=== PATIENT | male | born 1985 | race Caucasian/White ===

== ENCOUNTER 2019-03-01 15:20 | Emergency (ER) | payer MEDICAID, SELFPAY ==
[2019-03-01 15:22] VITALS: BP 135/83; PULSE 75; RESP 18; TEMP 36.1; O2SAT 99; BMI 27.9
--- NOTE | 2019-03-01 15:35 | RAD_ITS ---
STUDY: X-RAY - UNILATERAL RIBS ( LEFT ) WITH CHEST REASON FOR EXAM: Male, 33 years old. Left mid rib pain. TECHNIQUE - RIBS: 4 view(s) of the ribs. TECHNIQUE - CHEST: Single PA view of the chest. COMPARISON: None. FINDINGS - RIBS: Normal visualized ribs without a demonstrated fracture. FINDINGS - CHEST: Increased markings at the lung bases suggestive of bibasilar atelectasis. There is no demonstrated pleural abnormality. Normal size heart. Normal mediastinum and jared. Normal visualized pulmonary arteries. Normal visualized aortic arch and descending thoracic aorta. Normal visualized thoracic spine. Normal visualized ribs, clavicles, and shoulders. There is no demonstrated abnormality of the visualized soft tissue structures of the upper abdomen. RAD/Ribs Uni Min 3V w/PA Chest IMPRESSION: RIBS: Normal x-ray examination of the ribs. CHEST: Increased markings at the lung bases suggestive of bibasilar atelectasis. Electronically Signed: Romeo Li, at 15:56 EDT , Service support ,
--- NOTE | 2019-03-01 15:36 | ED.VISSUMM ---
- ER Visit Summary Date of Service: 03/01/19 Chief Complaint: Rib pain History of Present Illness: The patient is a 33 M who hit his left ribs against a dresser couple days ago. He has pain to the area. No other injuries. No abdominal pain or GI symptoms. Physical Examination: Afebrile and vital signs unremarkable. Patient has a linear abrasion over his left inferior and lateral ribs. He is tender to palpation of the area. No crepitus, bruising, or other abnormalities. Abdomen is soft and nontender. Back is nontender. Test Results: Rib and chest x-rays ordered. Emergency Department Course and Treatment: Patient treated with naproxen and Flexeril while awaiting results. X-rays performed. X-rays were negative. Will treat with naproxen and Flexeril. Incentive spirometer. Follow-up with primary care. Treatment Plan: As above Disposition: Discharge Impression: 1. Chest wall pain This note was generated with [employer] dictation software. It may contain incorrect words, spelling, and punctuation that were not noted in review of the chart prior to signing ED Disposition - Plan for ED Patient: Referrals: Care Physician,No Primary [Primary Care Provider] -
--- NOTE | 2019-03-01 16:16 | ED.DEP ---
ED Disposition - Plan for ED Patient: Instructions: Chest Wall Strain Prescriptions: cycloBENZAPRine HCl [Flexeril] 10 mg PO TID PRN #20 tab PRN Reason: Muscle Spasm Prescription Printed Naproxen [Naprosyn] 500 mg PO BID PRN #20 tab Prescription Printed Referrals: Juana Fuentes [NON-STAFF] -
[2019-03-01] MEDS: cycloBENZAPRine HCl 10 MG Tablet PO (16:24)
[2019-03-01] MEDS: Naproxen 500 MG Tablet PO (16:24)
[2019-03-01 16:26] VITALS: BP 141/87; PULSE 83; RESP 14; O2SAT 97
== END 2019-03-01 16:27 | disposition home or self-care (01) ==
LOC: ED 15:57
PROVIDERS: Emergency Provider Emergency Medicine
DX: R07.89 Other chest pain (principal); Z72.0 Tobacco use
CPT/HCPCS: 71101; 99283

== ENCOUNTER 2019-07-26 15:40 | Emergency (ER) | payer MEDICAID, SELFPAY ==
[2019-07-26 15:41] VITALS: BP 150/74; PULSE 100; RESP 16; TEMP 36.2; O2SAT 100; BMI 27.2
--- NOTE | 2019-07-26 16:43 | ED.DCSUM_ITS ---
- ER Visit Summary Date of Service: 07/26/19 Chief Complaint: [Right ear pain] History of Present Illness: The patient is a 34 M [presents the emergency department complaint of right ear pain that started last evening. Patient states that he stuck a Q-tip in his right ear initially noted some wax and maybe small amount of blood. This morning he woke up and had blood on his pillow. He continues to complain of pain in his right ear and at times feels dizzy. Patient denies any fevers. He denies recent illness.] Physical Examination: [HEENT-PERRLA, EOMI. Cranial nerves II through XII grossly intact. Right TM erythematous and dull. Patient does have a small clot on the superior medial quadrant however there is no active bleeding. I do not appreciate an obvious perforation. No drainage in the ear canal noted.. Mucous membranes moist. No adenopathy. Cardiovascular-regular rate and rhythm without murmur or ectopy Lungs-clear to auscultation, chest wall stable without crepitus or subcu emphysema Abdomen-normoactive bowel sounds, soft, nontender, no rebound or rigidity, no peritoneal signs. Extremities-intact ?4, normal range of motion, normal pulses, atraumatic] Test Results: [None indicated] Emergency Department Course and Treatment: [Patient was given Augmentin 875 p.o. as well as naproxen 500 mg p.o. ] Treatment Plan: [Patient will be treated with Augmentin and naproxen. Patient will be referred to ENT for follow-up to evaluate further for possible perforation of the eardrum.] Disposition: [Discharged home in stable condition] Impression: [Right otitis media] This note was generated with [employer] dictation software. It may contain incorrect words, spelling, and punctuation that were not noted in review of the chart prior to signing ED Disposition - Plan for ED Patient: Referrals: Care Physician,No Primary [Primary Care Provider] -
--- NOTE | 2019-07-26 16:45 | ED.DEP ---
ED Disposition - Plan for ED Patient: Instructions: OTITIS MEDIA, Abx Tx (Adult) Prescriptions: Amox/Clavulanate Tablet [Augmentin Tablet] 875 mg PO Q12H #10 tab Prescription Printed Naproxen [Naprosyn] 500 mg PO BID PRN #20 tab Prescription Printed Referrals: Care Physician,No Primary [Primary Care Provider] - Charlie Brown MD [STAFF PHYSICIAN] - 3-5 Days
[2019-07-26] MEDS: Naproxen 250 MG Tablet 500 MG PO (16:54)
[2019-07-26] MEDS: Amox/Clavulanate 875 MG Tablet PO (16:55)
[2019-07-26 16:58] VITALS: PULSE 87; RESP 19
== END 2019-07-26 17:01 | disposition home or self-care (01) ==
LOC: ED 16:44
PROVIDERS: Emergency Provider Emergency Medicine
DX: H66.91 Otitis media, unspecified, right ear (principal); Z72.0 Tobacco use; F12.90 Cannabis use, unspecified, uncomplicated
CPT/HCPCS: 99283

== ENCOUNTER 2020-02-07 21:54 | Emergency (ER) | payer MEDICAID, SELFPAY ==
[2020-02-07 21:54] VITALS: BP 132/80; PULSE 96; RESP 18; TEMP 36.2; O2SAT 98; BMI 28.7
--- NOTE | 2020-02-07 23:09 | ED.VIS.GEN ---
History of Present Illness Chief Complaint: Abscess Informant: Patient Narrative: Stated he has had a superficial abscess for the last 2 days just above his pubic hair. It is red and tender. There is a small central superficial scab on the surface. It is hard. It is small in nature. Comes in for further evaluation. Has had this in the past. No home treatment. Past Medical History - Allergies and Home Meds Allergies/Adverse Reactions: Allergies shellfish derived Allergy (Verified 02/07/20 21:57) Unknown Primary Care Physician: Care Physician,No Primary [Primary Care Provider] - Prior records reviewed: Yes Past Medical History: - - See problem list Surgical History: noncontributory Smoking Status: Unknown if ever smoked Alcohol: None Drugs: None Review of Systems General: Denies: Chills, Fever, Sweats Eyes: Denies: Visual changes - bilaterally, Diplopia ENT: Denies: Rhinorrhea, Sore throat Cardiovascular: Denies: Chest pain, Palpitations Respiratory: Denies: Dyspnea, Cough, Dyspnea on exertion Gastrointestinal: Denies: Abdominal pain, Nausea, Vomiting, Diarrhea, Melena, Hematochezia Genitourinary: Denies: Dysuria, Hematuria, Frequency Musculoskeletal: Denies: Back pain, Extremity Pain Skin: Reports: Abscess. Denies: Rash, Wounds Neurological: Denies: Headache, Weakness, Numbness Physical Exam Vital Signs/Narrative: Vital Signs Temp Pulse Resp BP Pulse Ox 02/07/20 21:54 97.2 F L 96 18 132/80 H 98 General: Well nourished, Well developed, No Acute Distress Head: Normocephalic, Atraumatic Eyes: Perrl, EOMI ENT: Moist mucous membranes, No rhinorrhea Neck: Supple, Nontender Cardiovascular: Regular rate, Regular rhythm, No murmurs Respiratory: No distress, CTA bilaterally, Chest nontender Abdomen: Soft, Nontender, Nondistended, Normal bowel sounds Back: Nontender, Normal Inspection Extremities: Nontender, No edema Skin: No rash, - - Patient has a small superficial boil measuring 0.5 x 0.5 cm. It is hard in nature. There is no fluctuance. There is half a centimeter surrounding redness Neurological: Alert, Oriented x3, Cranial nerves II-XII grossly intact, Normal Strength, Normal Sensation Psychological: Normal affect, Normal Mood Diagnostic/Tx/Re-eval - Medical Decision Making This time I feel the boil is very early. I do not feel there will be anything that comes out if I cut into it as it is hard and tiny. There is no fluctuance. I feel that this will be best served with oral antibiotics and topical clindamycin lotion. He will return if he develops fluctuance or gets worse despite this treatment. I feel that cutting into it would just cause bleeding as it is too early ED Disposition - Plan for ED Patient: Disposition: Home or Assisted Living Diagnosis: Skin abscess Instructions: ED Abscess Antibiotic Treatment Only Prescriptions: Smz/Tmp Ds [Bactrim Ds] 1 tab PO BID #20 tab Prescription Printed Clindamycin Phosphate [Cleocin T] 1 ml TP TID #1 lotion Prescription Printed Referrals: Tam Ha MD [STAFF PHYSICIAN] -
[2020-02-07] MEDS: Smz/Tmp Ds Tablet 1 TABLET PO (23:18)
== END 2020-02-07 23:23 | disposition home or self-care (01) ==
PROVIDERS: Emergency Provider Emergency Medicine
DX: L02.818 Cutaneous abscess of other sites (principal)
CPT/HCPCS: 99281; 99283

== ENCOUNTER 2021-03-22 15:55 | Emergency (ER) | payer MEDICAID, SELFPAY ==
[2021-03-22 15:56] VITALS: BP 116/83; PULSE 80; RESP 6; TEMP 35.6; O2SAT 99; BMI 26.9
--- NOTE | 2021-03-22 16:17 | EX.ED.UPPERE ---
HPI History of Present Illness Chief Complaint: Laceration Informant: patient Narrative Narrative: Patient presents with a laceration to his right dominant hand ring finger. He dropped an ax and quickly grabbed for it and cut his hand. Mild bleeding. Stopped with pressure. Tetanus is up-to-date. He states he has been bitten with dogs not uncommonly and he thinks his tetanus with is within 5 years. He states the tip of the finger feels a little bit tingly but he still feels it. No other injury. Putting a dressing made it better. Nothing makes it worse. PFSH PFSH Medical History no medical history Home Medications clindamycin phosphate 1 ml TP TID #1 lotion 02/07/20 [Rx Last Taken Unknown] sulfamethoxazole-trimethoprim 1 tab PO BID #20 tab 02/07/20 [Rx Last Taken Unknown] naproxen 500 mg PO BID #14 tab 03/22/21 [Rx Last Taken Unknown] Allergy/AdvReac Type Severity Reaction Status Date / Time fish derived Allergy PT UNSURE Verified 03/22/21 15:56 OF REACTION shellfish derived Allergy Unknown Verified 03/22/21 15:56 Surgical History no surgical history Social History Smoking Status: Current every day smoker tobacco type: cigarettes ROS ROS ED Gastrointestinal Gastrointestinal: Denies nausea or vomiting Musculoskeletal Musculoskeletal: Reports other Details: See history of present illness. Integumentary Reports other Details: Laceration as in history of present illness. Neurologic Neurologic: Reports paresthesias; Denies weakness Hematologic/Lymphatic Hematologic/Lymphatic: Denies easy bleeding or easy bruising EXAM Physical Exam Const Vital Signs: 03/22/21 15:56 Temperature 96.0 F L Temperature Source Temporal Pulse Rate 80 Respiratory Rate 6 L Blood Pressure 116/83 H Blood Pressure Mean 94 Pulse Ox 99 Oxygen Delivery Method Room Air Positive well nourished and well developed General Appearance ED: well developed and NAD HEENT normocephalic and atraumatic Neck full ROM and supple Resp normal respiratory effort Auscultation: Negative for wheezes Extremity full ROM Extremity Narrative: Patient has a cloth wrap around his finger. This is unwrapped. There is minimal ooze from the wound. Both superficial and deep flexor tendons are fully intact and tested individually. He can feel me touch the finger distal to this but he states it just feels a little bit different. His sensation is still intact though. General Extremety ED: Negative for edema General Extremity: Negative for edema Neuro oriented x3 Neuro Narrative: See above. Sensorium / Orientation: alert Skin Skin Narrative: See above. Trauma: laceration and other MDM MDM MDM Narrative Medical decision making narrative: Procedure: Suture laceration: The area was cleansed and soaked. I then used a alcohol swab and on the dorsum of the finger. We anesthetized the area with bupivacaine 0.5 cc a total of 2 cc was used. We let this rest. Finger got good anesthesia. I then scrubbed the area. The distal side a laceration was actually very jagged and irregular. Proximal side was straighter. I see no sign of tendon injury when I look in there. There is no active bleeding. We have good visualization. The edges were approximated with good cosmesis and hemostasis using 4 interrupted 5-0 Ethilon. Observation going through each side independently was done. Range of motion afterwards were normal. He tolerated procedure well. I discussed signs of infection and follow-up. The sutures should stay in for 10 to 14 days. If he has redness drainage pain swelling or any other concerns he should return. Discharge Plan Triage Chief Complaint: Laceration ED Provider: Jorge Blanchard Dx/Rx/DC Orders Clinical Impression: Laceration of right ring finger Instructions: ED Laceration: All Closures Prescriptions: New naproxen 500 MG tablet 500 mg PO BID Qty: 14 RF: 0 No Action sulfamethoxazole-trimethoprim 1 TABLET tablet 1 tab PO BID Qty: 20 RF: 0 clindamycin phosphate 60 ML lotion 1 ml TP TID Qty: 1 RF: 0 Primary Care Provider: Care Physician,No Primary Referrals: Iraida Linares DO [STAFF PHYSICIAN] - 10-14 Days suture removal Care Physician,No Primary [Primary Care Provider] - Disposition Disposition: Home, Self Care
[2021-03-22] MEDS: Bupivacaine Mpf 0.5% 30 ML VIAL INFILT (18:10)
== END 2021-03-22 18:12 | disposition home or self-care (01) ==
PROVIDERS: Emergency Provider Emergency Medicine
DX: S61.214A Laceration without foreign body of right ring finger without damage to nail, initial encounter (principal); W27.0XXA Contact with workbench tool, initial encounter; Y92.9 Unspecified place or not applicable; Y99.9 Unspecified external cause status; F17.210 Nicotine dependence, cigarettes, uncomplicated; Z79.1 Long term (current) use of non-steroidal anti-inflammatories (NSAID)
CPT/HCPCS: 12001; 99283

== ENCOUNTER 2021-06-21 20:31 | Emergency (ER) | payer MEDICAID, SELFPAY ==
[2021-06-21 20:32] VITALS: BP 143/102; PULSE 97; RESP 16; TEMP 36.2; O2SAT 99; BMI 29.0
--- NOTE | 2021-06-21 20:46 | EDS_ITS ---
HPI History of Present Illness Chief Complaint: Upper Extremity Injury Informant: patient Narrative Narrative: Patient reports mechanical trip and fall landed on his right wrist. He did this probably 4 or 6 hours ago. He is right-hand dominant. Pain is mostly in the dorsum. He never had anything else. Nothing else hurts. He has a splint already that he is using. PFSH PFS Medical History no medical history Home Medications clindamycin phosphate 1 ml TP TID #1 lotion 02/07/20 [Rx Last Taken Unknown] sulfamethoxazole-trimethoprim 1 tab PO BID #20 tab 02/07/20 [Rx Last Taken Unknown] naproxen 500 mg PO BID #14 tab 03/22/21 [Rx Last Taken Unknown] naproxen 500 mg PO BID #14 tab 06/21/21 [Rx Last Taken Unknown] Allergy/AdvReac Type Severity Reaction Status Date / Time fish derived Allergy PT UNSURE Verified 06/21/21 20:32 OF REACTION shellfish derived Allergy Unknown Verified 06/21/21 20:32 Surgical History no surgical history Social History Smoking Status: Current every day smoker tobacco type: cigarettes ROS ROS ED Eyes Eyes: Denies blurry vision Cardiovascular Cardiovascular: Denies chest pain, palpitations or racing heartbeat Musculoskeletal Musculoskeletal: Reports other Details: See history of present illness. ; Denies back pain, myalgias or neck pain Integumentary Denies abscess, Abrasions or rash Neurologic Neurologic: Denies paresthesias or weakness Hematologic/Lymphatic Hematologic/Lymphatic: Denies easy bleeding or easy bruising EXAM Physical Exam Const Vital Signs: 06/21/21 20:32 Temperature 97.2 F L Temperature Source Temporal Pulse Rate 97 Respiratory Rate 16 Blood Pressure 143/102 H Blood Pressure Mean 115 Pulse Ox 99 Oxygen Delivery Method Room Air Positive well nourished and well developed General Appearance ED: well developed and NAD; Negative for cyanotic or diaphoretic HEENT atraumatic Neck full ROM Chest Wall inspection of chest normal Resp normal respiratory effort Extremity Extremity Narrative: There is just a hint of dorsal swelling in the wrist. He has some tenderness over the dorsal area diffusely. Very mild snuffbox tenderness. No tenderness of the distal hand or fingers. No tenderness proximally. There is no deformity. Range of motion is actually still intact. Neuro no focal motor deficits and no sensory deficits noted Sensorium / Orientation: alert Skin Lesions: no lesions Rashes: no rashes Trauma: Negative for abrasion or laceration MDM MDM MDM Narrative Medical decision making narrative: X-rays looked at by me and read by radiology showed no sign of acute fracture. Patient does have some mild tenderness near his snuffbox. Because of this we will place him in a thumb spica. Explained he needs to have follow-up and repeat x-ray at a couple weeks to make sure he does not have an occult fracture. He will be given Naprosyn for pain. He can also use ice and rest. Procedure: Thumb spica splint application right arm: We placed a fiberglass padded splint radial gutter and thumb spica on the right arm. Karel wrap was applied with this. He tolerated this well. After placement, a good capillary refill and sensation of the thumb. He was told about repeat x- ray in a week or 2. He is given Naprosyn for pain. If the splint feels tight or he gets numbness tingling pressure or any other changes he can loosen the Karel wrap or return here. But he should not leave it on if he thinks it is too tight. Discharge Plan Triage Chief Complaint: Upper Extremity Injury ED Provider: Jorge Blanchard Dx/Rx/DC Orders Clinical Impression: Fall from slipping, Injury of wrist, right Instructions: ED Wrist Sprain Prescriptions: New naproxen 500 MG tablet 500 mg PO BID Qty: 14 RF: 0 No Action sulfamethoxazole-trimethoprim 1 TABLET tablet 1 tab PO BID Qty: 20 RF: 0 clindamycin phosphate 60 ML lotion 1 ml TP TID Qty: 1 RF: 0 naproxen 500 MG tablet 500 mg PO BID Qty: 14 RF: 0 Primary Care Provider: Care Physician,No Primary Referrals: Kane Best DO [STAFF PHYSICIAN] - 1-2 Weeks Care Physician,No Primary [Primary Care Provider] - Disposition Disposition: Home, Self Care
--- NOTE | 2021-06-21 20:50 | RAD_ITS ---
STUDY: X-RAY - RIGHT WRIST REASON FOR EXAM: Male, 36 years old. fall, trauma, pain TECHNIQUE: 3 view(s) of the wrist were obtained. COMPARISON: None. FINDINGS: Normal visualized distal radius and ulna. Normal radiocarpal articulation. Normal distal radioulnar articulation. Normal carpal bones. Normal carpal articulations. Normal carpometacarpal articulation of the thumb. Normal second through fifth carpometacarpal articulations. Normal visualized metacarpal bones. The soft tissue structures are unremarkable. RAD/Wrist min 3 Views IMPRESSION: Normal x-ray examination of the wrist. Electronically Signed: Angelito Rsoales MD ([place]) at 21:08 EST , Service support ,
[2021-06-21] MEDS: Naproxen 375 MG Tablet PO (22:02)
== END 2021-06-21 22:10 | disposition home or self-care (01) ==
PROVIDERS: Emergency Provider Emergency Medicine
DX: S69.91XA Unspecified injury of right wrist, hand and finger(s), initial encounter (principal); W01.0XXA Fall on same level from slipping, tripping and stumbling without subsequent striking against object, initial encounter; F17.210 Nicotine dependence, cigarettes, uncomplicated; Z79.1 Long term (current) use of non-steroidal anti-inflammatories (NSAID)
CPT/HCPCS: 73110; 99283